=== PATIENT | male | born 1965 | race Caucasian/White ===

== ENCOUNTER 2020-03-27 10:57 | Emergency (ER) | payer BC, SELFPAY ==
[2020-03-27 11:25] VITALS: BP 111/73; PULSE 106; RESP 16; TEMP 37.2; O2SAT 97
--- NOTE | 2020-03-27 11:31 | ED.EYEPROB ---
HPI - Eye Problem General Chief complaint: Eye Problems Stated complaint: metal in right eye Time Seen by Provider: 03/27/20 11:25 Source: patient and RN notes reviewed Mode of arrival: ambulatory Limitations: no limitations History of Present Illness HPI Narrative: 54-year-old male presents to [facility] with complaints of right eye pain. States approximately 1 week ago he was cutting stuff off and exhaust and thinks he either got dirt, metal or some foreign body in the eye. Has had pain. Used a friend's numbing drops last night which she states improved the pain and the foreign body sensation. Denies any past medical. No hyphema. Denies change of vision, loss of vision. Currently wears glasses, denies wearing contacts. Related Data Allergies Allergy/AdvReac Type Severity Reaction Status Date / Time Penicillins Allergy Unknown Unknown Verified 03/27/20 11:12 [facility] Allergy Unknown Uncoded 08/19/02 12:13 Review of Systems Review of Systems: Narrative: CONSTITUTIONAL: Denies fever, chills, or sweats. EYES: Denies visual changes, redness, or discharge. Foreign body feeling right eye ENT: Denies rhinorrhea, congestion, sore throat, or otalgia. CARDIOVASCULAR: Denies chest pain, palpitations, or edema. RESPIRATORY: Denies cough or dyspnea. GASTROINTESTINAL: Denies abdominal pain, nausea, vomiting, or diarrhea. GENITOURINARY: Denies dysuria or hematuria. SKIN: Denies rash or itching. MUSCULOSKELETAL: Denies back pain, joint pain, or myalgia. NEUROLOGIC: Denies headache, numbness, or weakness. PSYCHIATRIC: Denies anxiety or depression. All other systems reviewed are negative, except as documented in HPI. PMFSH Social History Social History Gender identity (if verbalized by the patient): Male Comments At the time of my signature, I reviewed and agree with the nursing past medical, surgical, social, and family history. There is no relevant family history pertinent to the patient complaint. Exam Narrative: Exam Narrative: GENERAL: This is a well-nourished, well-developed patient, in no apparent distress. HEAD: normocephalic, atraumatic. EYES: PERRL. Sclera clear/white. Vision is grossly intact. EARS: External ears normal, auditory canals clear and without drainage, TMs normal without perforation. Hearing grossly intact. NECK: Neck supple, non-tender without lymphadenopathy, masses or thyromegaly. CARDIOVASCULAR: Regular rate and rhythm without murmurs, gallops, or rubs. RESPIRATORY: Clear to auscultation. Breath sounds equal bilaterally. No wheezes, rales, or rhonchi. GASTROINTESTINAL: Abdomen soft, non-tender, nondistended. SKIN: warm, intact with no suspicious lesions or rash, good texture and turgor. NEURO: awake, alert, and oriented to person, place and time. There were no obvious focal neurologic abnormalities. EXTREMITIES: No clubbing, cyanosis, or edema. No joint tenderness, effusion, or edema noted. Walks with a normal gait Eyes: Visual Hall: normal visual hall by confrontation Alignment and Position: alignment normal Eyelids: eyelids normal Conjunctivae: conjunctivae normal Cornea: fluorescein used (Abrasion noted) Pupils: Equal, round and reactive pupils present EOM: EOMs intact bilaterally Direct Ophthalmoscopy: no photophobia and No photophobia Other: Pulled eyelid up no foreign bodies noted upper or lower eyelids. Fluorescein used. Patient tolerated well Eyes/upper lids images: 1. Small corneal abrasion noted Course Vital Signs Vital signs: Vital Signs Temperature 99.0 F 03/27/20 11:25 Pulse Rate 106 H 03/27/20 11:25 Respiratory Rate 16 03/27/20 11:25 Blood Pressure 111/73 03/27/20 11:25 Pulse Oximetry 97 03/27/20 11:25 Temperature 99.0 F 03/27/20 11:25 Pulse Rate 106 H 03/27/20 11:25 Respiratory Rate 16 03/27/20 11:25 Blood Pressure 111/73 03/27/20 11:25 Pulse Oximetry 97 03/27/20 11:25 Reviewed MDM - Eye Problem MDM Narrative Medical decision magalys
== END 2020-03-27 11:41 | disposition home or self-care (01) ==
PROVIDERS: Emergency Provider Nurse Practitioner
DX: S05.01XA Injury of conjunctiva and corneal abrasion without foreign body, right eye, initial encounter (principal); X58.XXXA Exposure to other specified factors, initial encounter
CPT/HCPCS: 99213; A9270; G0463